=== PATIENT | female | born 1995 | race American Indian/Alaskan Native ===

== ENCOUNTER 2018-06-02 11:16 | Emergency (ER) | payer SELFPAY ==
[2018-06-02] MEDS ORDERED: ZOFRAN IV ONE (12:47)
[2018-06-02] MEDS ORDERED: NACL 0.9% 1000 ML 1,000 ML IV ONE ×2 (12:47→14:58)
[2018-06-02] MEDS ORDERED: TORADOL IV ONE (12:47)
--- NOTE | 2018-06-02 12:50 | Emergency Department Report ---
Blank Doc - Documentation Documentation: Patient is a 23-year-old black female who has had 15 days of continuous vaginal bleeding. Patient's states that she has some diffuse crampy abdominal pain with the bleeding. There are large clots that she is has coming out as well. Patient also felt very cold and faint at times. Patient denies any fevers chills or dysuria. Patient states she's had some mild nausea. Laboratory studies were done to rule out as well as anemia. She will be reassessed.
[2018-06-02 13:51] LABS: Basophils # (Auto) 0.1 K/mm3 (0.0-0.1); Eosinophils # (Auto) 0.1 K/mm3 (0.0-0.4); Eosinophils % (Auto) 1.5 % (0.0-4.3); Hematocrit 34.8 % (30.3-42.9); Hemoglobin 11.2 gm/dl (10.1-14.3); Lymphocytes % (Auto) 32.2 % (13.4-35.0); Mean Corpuscular HGB Conc 32 % (30-34); Mean Corpuscular Volume 76 fl (79-97); Monocytes # (Auto) 0.5 K/mm3 (0.0-0.8); Monocytes % (Auto) 7.8 % (0.0-7.3); Platelet Count 206 K/mm3 (140-440); Red Blood Count 4.58 M/mm3 (3.65-5.03); Red Cell Distribution Width 16.6 % (13.2-15.2)
[2018-06-02 13:52] LABS: Mean Corpuscular Hemoglobin 24 pg (28-32)
[2018-06-02 14:10] LABS: BUN/Creatinine Ratio 13; Blood Urea Nitrogen 8 mg/dL (7-17); Calcium 8.9 mg/dL (8.4-10.2); Hemolysis Index 385
[2018-06-02 15:45] LABS: Bilirubin,Urine NEG (Negative); Blood,Urine LG (Negative); Color,Urine Yellow (Yellow); Mucus,Urine FEW /HPF
[2018-06-02 15:46] LABS: RBC,Urine > 182.0 /HPF (0.0-6.0)
--- NOTE | 2018-06-02 16:00 | Emergency Department Report ---
ED Female HPI - General Chief complaint: Vaginal Bleeding Stated complaint: LIGHTED BLEEDING SINCE MAY 19 Time Seen by Provider: 06/02/18 12:24 Source: patient Mode of arrival: Ambulatory Limitations: No Limitations - History of Present Illness Initial comments: 23-year-old female past medical history none presents with complaint of persistent heavy vaginal bleeding. Patient is awake alert and oriented 3. States that she has intermittently sharp cramps. Family history of endometriosis reported by mother and sister at bedside. Patient is not on control. Denies fevers or chills denies dysuria or increased urinary frequency. Does not currently have an PRODUCT DEVELOPMENT MANAGER. Is not currently . Does not take iron supplementation. States that she has a history of irregular and heavy periods. MD Complaint: vaginal bleeding Onset/Timin -: days(s) Severity: moderate Severity scale (0 -10): 6 Quality: cramping Consistency: intermittent Improves with: none Are you Now?: No Associated Symptoms: vaginal bleeding - Related Data Sexually active: Yes Previous Rx's Medication Instructions Recorded Last Taken Type Ferrous Sulfate [Feosol 325 MG tab] 325 mg PO QDAY #30 tablet 06/02/18 Unknown Rx Ibuprofen [Motrin] 600 mg PO Q8H PRN #25 tablet 06/02/18 Unknown Rx Allergies Allergy/AdvReac Type Severity Reaction Status Date / Time No Known Allergies Allergy Unverified 06/02/18 11:53 ED Review of Systems ROS: Stated complaint: LIGHTED BLEEDING SINCE MAY 19 Other details as noted in HPI Constitutional: denies: chills, fever Eyes: denies: eye pain, eye discharge, vision change ENT: denies: ear pain, throat pain Respiratory: denies: cough, shortness of breath, wheezing Cardiovascular: denies: chest pain, palpitations Endocrine: no symptoms reported Gastrointestinal: denies: abdominal pain, nausea, diarrhea Genitourinary: abnormal menses. denies: urgency, dysuria, discharge Musculoskeletal: denies: back pain, joint swelling, arthralgia Skin: denies: rash, lesions Neurological: denies: headache, weakness, paresthesias Psychiatric: denies: anxiety, depression Hematological/Lymphatic: denies: easy bleeding, easy bruising ED Past Medical Hx - Past Medical History Previous Medical History?: Yes Hx Asthma: Yes - Surgical History Past Surgical History?: No - Social History Smoking Status: Current Every Day Smoker Substance Use Type: Alcohol, Prescribed - Medications Home Medications: Home Medications Medication Instructions Recorded Confirmed Last Taken Type Ferrous Sulfate [Feosol 325 MG tab] 325 mg PO QDAY #30 tablet 06/02/18 Unknown Rx Ibuprofen [Motrin] 600 mg PO Q8H PRN #25 tablet 06/02/18 Unknown Rx ED Physical Exam - General Limitations: No Limitations General appearance: alert, in no apparent distress - Head Head exam: Present: atraumatic, normocephalic - Eye Eye exam: Present: normal appearance - ENT ENT exam: Present: mucous membranes moist - Neck Neck exam: Present: normal inspection - Respiratory Respiratory exam: Present: normal lung sounds bilaterally. Absent: respiratory distress - Cardiovascular Cardiovascular Exam: Present: regular rate, normal rhythm. Absent: systolic murmur, diastolic murmur, rubs, gallop - GI/Abdominal GI/Abdominal exam: Present: soft, normal bowel sounds - Extremities Exam Extremities exam: Present: normal inspection - Back Exam Back exam: Present: normal inspection - Neurological Exam Neurological exam: Present: alert, oriented X3 - Psychiatric Psychiatric exam: Present: normal affect, normal mood - Skin Skin exam: Present: warm, dry, intact, normal color. Absent: rash ED Course Vital Signs 06/02/18 06/02/18 06/02/18 11:48 15:01 16:01 Temperature 98.3 F 99 F Pulse Rate 97 H 67 77 Respiratory 18 16 Rate Blood Pressure 100/60 Blood Pressure 105/50 121/90 [Left] O2 Sat by Pulse 98 99 Oximetry ED Medical Decision Making - Lab Data Result diagrams: 06/02/18 13:30 06/02/18 13:30 - Medical Decision Making A/P: vaginal bleeding, menometrorrhagia [email or web address]_[email or web address] 2-I referred patient to PRODUCT DEVELOPMENT MANAGER. I emphasized the importance of follow-up. Patient is not anemic at this time. Urinalysis unremarkable. 3-I advised patient to return to the ED for chest pain palpitations shortness of breath or severe pallor. Patient does not have these symptoms at this time 4- labs reviewed with Dr. Renner. I will start patient on iron supplementation and I emphasized its importance. Critical care attestation.: If time is entered above; I have spent that time in minutes in the direct care of this critically ill patient, excluding procedure time. ED Disposition Clinical Impression: Menorrhagia with irregular cycle Disposition: TO HOME OR SELFCARE Is pt being admited?: No Does the pt Need Aspirin: No Condition: Stable Instructions: Menorrhagia (ED), Iron Rich Diet (ED), Anemia (ED), Dysmenorrhea (ED) Prescriptions: Ferrous Sulfate [Feosol 325 MG tab] 325 mg PO QDAY #30 tablet Ibuprofen [Motrin] 600 mg PO Q8H PRN #25 tablet PRN Reason: Pain Referrals: [facility] [Provider Group] - 3-5 Days [facility] [Provider Group] - 3-5 Days CHANTEL VO MD [Staff Physician] - 3-5 Days Forms: Accompanied Note, Work/School Release Form(ED) Time of Disposition: 16:04
[2018-06-02 16:01] VITALS: BP 121/90
== END 2018-06-02 16:55 | disposition home or self-care (01) ==
LOC: ED 11:16
DX: N92.0 Excessive and frequent menstruation with regular cycle (principal); J45.909 Unspecified asthma, uncomplicated; F17.200 Nicotine dependence, unspecified, uncomplicated
CPT/HCPCS: 36415; 80048; 81001; 84703; 85025; 96374; 96375; 99283; J1885; J2405; J7030